=== PATIENT | female | born 1940 | race Caucasian/White ===

== ENCOUNTER 2023-08-19 09:26 | Emergency (ER) | payer MEDICARE, OTHER, SELFPAY ==
--- NOTE | 2023-08-19 09:35 | ED.SKABFB ---
HPI - Skin/Abscess/Foreign Bdy General Chief complaint: Skin/Abscess/Foreign Body Stated complaint: Skin Sore/Right Leg Time Seen by Provider: 08/19/23 09:35 Source: patient Mode of arrival: ambulatory Limitations: no limitations History of Present Illness HPI narrative: 83-year-old female presents with concern for infection to right lower extremity. States 1 week ago she hit her leg and has abrasion. Notice redness and swelling getting progressively worse past few days. History of MRSA. Ambulatory with steady gait. All systems reviewed and negative except as noted above. Related Data Home Medications Medication Instructions Recorded Confirmed alendronate 70 mg tablet mg PO 08/19/23 sertraline 25 mg tablet mg 08/19/23 Allergies Allergy/AdvReac Type Severity Reaction Status Date / Time No Known Allergies Allergy Unknown Unverified 12/21/18 13:25 No Known Allergies Allergy Uncoded 12/21/18 13:25 Review of Systems Review of Systems: CONSTITUTIONAL: Denies fever, chills, or sweats. EYES: Denies visual changes, redness, or discharge. ENT: Denies rhinorrhea, congestion, sore throat, or otalgia. CARDIOVASCULAR: Denies chest pain, palpitations, or edema. RESPIRATORY: Denies cough or dyspnea. GASTROINTESTINAL: Denies abdominal pain, nausea, vomiting, or diarrhea. GENITOURINARY: Denies dysuria or hematuria. SKIN: Reports abrasion to right lower extremity with erythema and swelling. MUSCULOSKELETAL: Denies back pain, joint pain, or myalgia. NEUROLOGIC: Denies headache, numbness, or weakness. PSYCHIATRIC: Denies anxiety or depression. All other systems reviewed are negative, except as documented in HPI. PMFSH Comments At time of signature, agree with nursing past medical, surgical, social and family history. There is no relevant family history pertinent to the presenting complaint. Exam Narrative: GENERAL: This is a well-nourished, well-developed patient, in no apparent distress. HEAD: normocephalic, atraumatic. EYES: PERRL. Sclera clear/white. Vision is grossly intact. EARS: External ears normal NOSE: External nose normal NECK: Neck supple, non-tender without lymphadenopathy, masses or thyromegaly. CARDIOVASCULAR: Regular rate and rhythm without murmurs, gallops, or rubs. RESPIRATORY: Clear to auscultation. Breath sounds equal bilaterally. No wheezes, rales, or rhonchi. SKIN: warm, Dry, intact with no suspicious lesions or rash, good texture and turgor. 2 cm diameter abrasion to anterior aspect of right lower extremity with 6 x 8 cm area of erythema. Warm to touch. No fluctuance. NEURO: awake, alert, and oriented to person, place and time. Course Course Level of Care: Express Care Visit Vital Signs Vital signs: Vital Signs Temperature 36.7 C 08/19/23 09:37 Pulse Rate 83 08/19/23 09:37 Respiratory Rate 18 08/19/23 09:37 Blood Pressure 128/66 08/19/23 09:37 Pulse Oximetry 100 08/19/23 09:37 Oxygen Delivery Room Air 08/19/23 09:37 Temperature 36.7 C 08/19/23 09:37 Pulse Rate 83 08/19/23 09:37 Respiratory Rate 18 08/19/23 09:37 Blood Pressure 128/66 08/19/23 09:37 Pulse Oximetry 100 08/19/23 09:37 Oxygen Delivery Room Air 08/19/23 09:37 Reviewed MDM - Skin/Abscess/Foreign Bdy MDM Narrative Medical decision making narrative: Patient is aware of diagnosis, understands and agrees to treatment plan. Anticipatory guidance given. Patient agrees to follow-up as directed and is aware of reasons to seek care at the emergency department. Portions of this record may have been created with voice recognition software Differential Diagnosis Differential diagnosis: Likely urticaria, cellulitis, impetigo and contact dermatitis Discharge Plan Discharge Clinical Impression: Cellulitis of right lower extremity Patient Disposition: Home, Self-Care Condition: Stable Instructions: Antibiotic Form, Cellulitis (ED) Additional Instructions: Take ant
[2023-08-19 09:37] VITALS: BP 128/66; PULSE 83; RESP 18; TEMP 36.7; O2SAT 100
== END 2023-08-19 10:00 | disposition home or self-care (01) ==
PROVIDERS: Emergency Provider Nurse Practitioner Family; PCP Internal Medicine
DX: L03.115 Cellulitis of right lower limb (principal); Z86.14 Personal history of Methicillin resistant Staphylococcus aureus infection; M81.0 Age-related osteoporosis without current pathological fracture; L98.9 Disorder of the skin and subcutaneous tissue, unspecified
CPT/HCPCS: 99213; G0463

== ENCOUNTER 2023-11-19 13:11 | Emergency (ER) | payer MEDICARE, OTHER, SELFPAY ==
[2023-11-19 13:17] VITALS: BP 122/70; PULSE 87; RESP 16; TEMP 37.2; O2SAT 99
--- NOTE | 2023-11-19 13:51 | ED.GENADULT ---
HPI - General Adult General Chief complaint: Skin/Abscess/Foreign Body Stated complaint: Rash Time Seen by Provider: 11/19/23 13:51 Source: patient, RN notes reviewed and old records reviewed Mode of arrival: ambulatory Limitations: no limitations History of Present Illness HPI narrative: 83-year-old female to Express Care or complaint of diffuse, red rash to face for 3 weeks. Patient denies pain, itching, known irritant, dry cough, dry shortness of breath, oral swelling, allergies, pertinent medical history. Patient resting comfortably in exam room in no acute distress. Related Data Home Medications Medication Instructions Recorded Confirmed alendronate 70 mg tablet 70 mg PO DAILY 08/19/23 11/19/23 sertraline 25 mg tablet 25 mg PO DAILY 08/19/23 11/19/23 Allergies Allergy/AdvReac Type Severity Reaction Status Date / Time No Known Allergies Allergy Unknown Unverified 11/19/23 13:24 Review of Systems Review of Systems: All systems reviewed & are unremarkable except as noted in HPI and below Constitutional: Constitutional: Reports no additional constitutional complaints Eyes: Eyes: Reports no additional eye complaints ENT: Reports system reviewed and no additional complaints, except as documented Cardiovascular: Cardiovascular: Reports no additional cardiovascular complaints, Denies chest pain and Denies dyspnea Respiratory: Respiratory: Reports no additional respiratory complaints, Denies cough and Denies dyspnea Musculoskeletal: Musculoskeletal: Reports no additional musculoskeletal complaints Integumentary/Breasts: Skin/Breast: Reports as per HPI and Reports rash ( Diffuse face) Neurologic: Reports system reviewed and no additional complaints, except as documented Psychiatric: Psychiatric: Reports no additional psychiatric complaints PMFSH Comments At the time of my signature, I reviewed and agree with the nursing past medical, surgical, social, and family history. There is no relevant family history pertinent to the patient complaint. Exam Const: General: cooperative, healthy appearing, comfortable, no acute distress, alert and well nourished Nutritional Appearance: well nourished Orientation/consciousness: patient oriented x3 Limitations: no limitations HENMT: Head: normal to inspection Ears: external ears normal Face/Nose/Sinus: Normal external nose present, Normal nares present, normal facial exam, No erythema and No edema Face and sinus: normal facial exam, no erythema and no edema Mouth: Yes Normal oral and palatal mucosa present Eyes: General: appearance normal, both eyes and all related structures Neck: Neck: normal visual inspection, full ROM and no meningeal signs Lymphatic: no lymphadenopathy noted and no lymphedema noted Chest: Chest palpation & inspection: normal inspection of the chest Resp: Effort & Inspection: normal respiratory effort and able to speak in complete sentences Auscultation: clear to auscultation bilaterally Cardio: Jugular venous distension: no JVD Rate: regular rate Rhythm: regular rhythm Back/Spine/Pelvis: Cervical Spine: cervical ROM normal Skin: General skin exam: normal color, no rashes or lesions noted and turgor normal Neuro: General: patient oriented x3, gait normal, moves all extremities and no meningeal signs Speech: normal speech Gait exam (Neuro): Normal gait present Extrem: General: normal to inspection, full ROM and capillary refill normal Psych: Appearance: grossly normal and well kempt Course Course Emergency Course: Some parts of this dictation were generated by voice recognition software and may contain typographical and/or grammatical inaccuracies. Level of Care: Express Care Visit Vital Signs Vital signs: Vital Signs Temperature 37.2 C 11/19/23 13:17 Pulse Rate 87 11/19/23 13:17 Respiratory Rate 16 11/19/23 13:17 Blood Pressure 122/70 11/19/23 13:17 Pulse Oximetry 99 11/19/23 13:17 Oxygen Delivery Colleen
== END 2023-11-19 14:09 | disposition home or self-care (01) ==
PROVIDERS: Emergency Provider Nurse Practitioner Family; PCP Internal Medicine
DX: L25.9 Unspecified contact dermatitis, unspecified cause (principal)
CPT/HCPCS: 99213; G0463

== ENCOUNTER 2025-01-04 11:26 | Emergency (ER) | payer MEDICARE, SELFPAY ==
[2025-01-04 11:41] VITALS: BP 131/70; PULSE 84; RESP 20; TEMP 36.6; O2SAT 97
--- NOTE | 2025-01-04 12:00 | ED_ITS ---
HPI - Skin/Abscess/Foreign Bdy General Chief complaint: Skin/Abscess/Foreign Body Stated complaint: Rash Time Seen by Provider: 01/04/25 11:50 Source: patient and RN notes reviewed Mode of arrival: ambulatory Limitations: no limitations History of Present Illness HPI narrative: 84-year-old female patient presents today with a 3 to 4-week history of erythematous mildly painful rash to the right cheek and perioral area. She has been applying witch Joycelyn and Campho-Phenique. States since onset, symptoms have slightly improved. Related Data Home Medications ?Medication ?Instructions ?Recorded ?Confirmed ?Last Taken ?Type alendronate 70 mg tablet 70 mg PO DAILY 08/19/2310/21 Unknown History sertraline 25 mg tablet 25 mg PO DAILY 08/19/2310/21 Unknown History Allergies Allergy/AdvReac Type Severity Reaction Status Date / Time No Known Allergies Allergy Unknown Verified 01/04/25 11:39 [facility] Past Medical History Medical History (Updated 01/04/25 @ 12:07 by Anai Capps, [facility], ) Osteoporosis Comments At time of signature, I have reviewed and agree with nursing past medical, surgical, social and family history unless otherwise noted. Please see nursing chart for further information. There is no relevant family history pertinent to the presenting complaint Exam Narrative: GENERAL: Well-appearing, well-nourished, and in no acute distress. HEAD: Normocephalic, atraumatic. EYES: EOMI. No redness or drainage. Conjunctivae normal. ENT: Mucous membranes pink and moist. NECK: Normal AROM. CHEST: No respiratory distress. EXTREMITIES: Normal range of motion. No edema. SKIN: Warm, dry. Capillary refill normal. Normal skin turgor. Perioral area has several scattered erythematous small bumps without drainage or crusting. No papules or pustules. Right cheek with flat, erythemtous rough patch measuring approx 2x2cm without edema or drainage. NEURO: No focal deficits. Alert and oriented x3. Gait steady. PSYCH: Normal affect. No signs of depression or anxiety. Course Course Level of Care: Express Care Visit Vital Signs Vital signs: Vital Signs Temperature 98 F 01/04/25 11:41 Pulse Rate 84 01/04/25 11:41 Respiratory Rate 20 01/04/25 11:41 Blood Pressure 131/70 10/17/25 11:41 Pulse Oximetry 97 01/04/25 11:41 Oxygen Delivery Room Air 01/04/25 11:41 Temperature 98 F 01/04/25 11:41 Pulse Rate 84 01/04/25 11:41 Respiratory Rate 20 01/04/25 11:41 Blood Pressure 131/70 01/04/25 11:41 Pulse Oximetry 97 01/04/25 11:41 Oxygen Delivery Room Air 01/04/25 11:41 Reviewed MDM - Skin/Abscess/Foreign Bdy MDM Narrative Medical decision making narrative: 84-year-old female patient presents today with a 3 to 4-week history of erythematous mildly painful rash to the right cheek and perioral area. She has been applying witch Joycelyn and Campho-Phenique. States since onset, symptoms have slightly improved.Perioral area has several scattered erythematous small bumps without drainage or crusting. Does not appear to be perioral dermatitis. There are no papules presents. Right cheek with flat, erythemtous rough patch measuring approx 2x2cm without edema or drainage. Patient will be treated with mupirocin possible bacterial infection to the perioral area. The right cheek feels like eczema. Petrolatum base the mupirocin can help this as well. Patient agrees with plan. Recommend PCP follow-up in 1 week if symptoms persist. Vital signs stable. Differential Diagnosis Differential diagnosis: Likely abscess of skin or subcutaneous tissue, viral exanthem, dermatophytosis, urticaria, cellulitis, eczema, impetigo and contact dermatitis Critical Care Time Critical Care Time Critical Care Time: No Discharge Plan Discharge Clinical Impression: Impetigo Patient Disposition: Home Condition: Stable Instructions: Antibiotic Form Additional Instructions: Please use the mupirocin as directed. Follow-up with your PCP in 1 week if symptoms are not improving. Patient Language: Hungarian Prescriptions: New mupirocin 2 % ointment 1 applic topical BID 7 Days Qty: 22 0RF No Action alendronate 70 mg tablet 70 mg PO DAILY sertraline 25 mg tablet 25 mg PO DAILY Follow-up/Referrals: Vin,Reza Hill MD [Primary Care Provider, Unknown] Time of Disposition: 12:08
== END 2025-01-04 12:11 | disposition home or self-care (01) ==
PROVIDERS: Emergency Provider Nurse Practitioner; PCP Internal Medicine
DX: L01.00 Impetigo, unspecified (principal); M81.0 Age-related osteoporosis without current pathological fracture
CPT/HCPCS: 99213; G0463

== ENCOUNTER 2025-01-06 15:40 | Emergency (ER) | payer MEDICARE, SELFPAY ==
--- NOTE | 2025-01-06 15:43 | ED.SKABFB ---
HPI - Skin/Abscess/Foreign Bdy General Chief complaint: Skin/Abscess/Foreign Body Stated complaint: returned /face broke out Time Seen by Provider: 01/06/25 16:07 Source: patient, RN notes reviewed and old records reviewed Mode of arrival: ambulatory Limitations: no limitations History of Present Illness HPI narrative: 84-year-old female returns to the [facility] with increased itchiness, redness to her right cheek and now on the left nostril area. States that she was seen, prescribed a cream. Has only applied twice. One time yesterday afternoon and 1 time this morning. Related Data Home Medications ?Medication ?Instructions ?Recorded ?Confirmed ?Last Taken ?Type alendronate 70 mg tablet 70 mg PO DAILY 08/19/23 11/19/23 Unknown History sertraline 25 mg tablet 25 mg PO DAILY 08/19/23 11/19/23 Unknown History Allergies Allergy/AdvReac Type Severity Reaction Status Date / Time No Known Allergies Allergy Unknown Verified 01/06/25 15:51 Review of Systems Review of Systems: All systems reviewed & are unremarkable except as noted in HPI and below Constitutional: Constitutional: Reports no additional constitutional complaints ENT: Reports system reviewed and no additional complaints, except as documented Cardiovascular: Cardiovascular: Reports no additional cardiovascular complaints, Denies chest pain and Denies dyspnea Respiratory: Respiratory: Reports no additional respiratory complaints, Denies chest congestion, Denies cough and Denies dyspnea Musculoskeletal: Musculoskeletal: Reports no additional musculoskeletal complaints Integumentary/Breasts: Skin/Breast: Reports as per HPI [facility] Past Medical History Medical History Osteoporosis Comments At the time of my signature, I reviewed and agree with the nursing past medical, surgical, social, and family history. There is no relevant family history pertinent to the patient complaint. Exam Const: General: cooperative, healthy appearing, comfortable, no acute distress, well developed, alert and well nourished Nutritional Appearance: well nourished Orientation/consciousness: patient oriented x3 Limitations: no limitations HENMT: Head: normal to inspection Head images:  1. 2 x 2 area redness, mildly raised. Warm to touch. 2. One by 0.5 cm redness, pustule Ears: hearing grossly normal bilaterally, external ears normal, TM's normal bilaterally, EAC's normal, mastoids normal and no periauricular adenopathy Eyes: General: appearance normal, both eyes and all related structures Alignment and Position: alignment normal Neck: Neck: normal visual inspection, full ROM, no lymphadenopathy and no meningeal signs Chest: Chest palpation & inspection: normal inspection of the chest Resp: Effort & Inspection: normal respiratory effort and able to speak in complete sentences Auscultation: clear to auscultation bilaterally, no crackles, no rales, no rhonchi and no wheezes Cardio: Rate: regular rate Skin: General skin exam: normal color and no rashes or lesions noted Lesions: lesion noted Neuro: General: patient oriented x3, gait normal, moves all extremities and no meningeal signs Cognition (Neuro): normal cognition Speech: normal speech Gait exam (Neuro): Normal gait present Extrem: General: normal to inspection, full ROM, capillary refill normal and normal gait Psych: Appearance: grossly normal and well kempt Mental Status: mental status grossly normal Speech and movement: Normal speech and movement present and Clear speech present Affect: normal affect Attitude: cooperative Course Course Level of Care: Express Care Visit Vital Signs Vital signs: Vital Signs Temperature 97.6 F 01/06/25 15:45 Pulse Rate 71 01/06/25 15:45 Respiratory Rate 20 01/06/25 15:45 Blood Pressure 168/77 H 01/06/25 15:45 Pulse Oximetry 99 01/06/25 15:45 Oxygen Delivery Room Air 01/06/25 15:45 Temperature 97.6 F 01/06/25 15:45 Pulse Rate 71 01/06/25 15:45 Respiratory Rate 20 01/06/25 15:45 Blood Pressure 168/77 H 01/06/25 15:45 Pulse Oximetry 99 01/06/25 15:45 Oxygen Delivery Room Air 01/06/25 15:45 Reviewed MDM - Skin/Abscess/Foreign Bdy MDM Narrative Medical decision making narrative: Patient returns to the [facility] after using the antibiotic ointment times to applications. States that she feels like it has gotten worse. the areas have small pustules, reddened area, right cheek, left nostril Patient prescribed oral antibiotic. Discussed [id number] steroid cream as well as continuing the cream that was prescribed 2 days ago. Patient verbalized understanding. Also stressed the importance of following up with her primary care provider Discharge instructions reviewed with patient, as well as provided in writing per nursing staff. The instructions also include specific and strict return/GO TO THE ER as well as f/u information. All questions have been answered, and the patient deny any further questions with discharge and discharge plan. Some parts of this dictation were generated by voice recognition software and may contain typographical and/or grammatical inaccuracies. Differential Diagnosis Differential diagnosis: Likely abscess of skin or subcutaneous tissue, dermatophytosis, urticaria, herpes zoster, allergic reaction to drug, cellulitis, eczema, insect bites and impetigo Critical Care Time Critical Care Time Critical Care Time: No Discharge Plan Discharge Clinical Impression: Pustular dermatitis Patient Disposition: Home Condition: Stable Instructions: Antibiotic Form, Dermatitis (ED) Additional Instructions: Keep face clean and dry. Wash with a mild soap. Pat dry. Apply hydrocortisone 1% sparingly to the area twice daily. This is [id number]. Continue using the Mupirocin ointment Take antibiotic as prescribed Follow-up with primary care provider Today your blood pressure was 168/77 is recommended you follow-up with your primary care provider to have this rechecked. For new or worsening symptoms go directly to the emergency room Patient Language: Moldovan Prescriptions: New cephalexin 500 mg capsule 500 mg PO Q8H 7 Days Qty: 21 0RF No Action alendronate 70 mg tablet 70 mg PO DAILY sertraline 25 mg tablet 25 mg PO DAILY mupirocin 2 % ointment 1 applic topical BID 7 Days Qty: 22 0RF Follow-up/Referrals: Vin,Reza Hill MD [Primary Care Provider, Unknown] Time of Disposition: 16:25
--- OUTSIDE RECORDS SUMMARY | 2025-01-06 15:43 | XMS_ITS | Clinical Summary ---
Author Organization [facility] Address [address] [place] [address] Phone Care Team Providers Care Drum Operator Name Role Phone Reza Banuelos MD Primary Care Provider Allergies No known active allergies Medications Vitamin D3 1000 UNIT Tablet Take 25 mcg by mouth daily. Active Calcium Citrate (CITRACAL PO) Take 1 Tablet by mouth daily. Active Magnesium 250 MG Tablet Take by mouth. Active potassium chloride SA (KLORCON M) 10 MEQ Tablet Controlled Release Take 10 mEq by mouth daily. Active Calcium Carbonate-Vitam in D (CALTRATE 600+D PO) Take by mouth. Active Multivitamin-Mi nerals (multiple vitamin with minerals) Tablet Take 1 Tablet by mouth daily. Active Zinc 50 MG Tablet Take 1 Tablet by mouth daily. Active metroNIDAZOLE (METROCREAM) 0.75 % Cream Apply nightly. Apply to rash on face at bedtime 45 g 03/06/2024 Active sertraline (ZOLOFT) 25 MG Tablet Take 1 Tablet by mouth daily. 30 Tablet 5 08/16/2024 Active alendronate (FOSAMAX) 70 MG Tablet TAKE 1 TABLET BY MOUTH EVERY 7 DAYS 12 Tablet 1 09/24/2024 Active Active Problems Problem Noted Date Diagnosed Date Rosacea 05/14/2024 Generalized anxiety disorder 05/14/2024 Age-related osteoporosis wit hout current pathological fracture 08/30/2022 GERD without esophagitis 09/18/2020 Mild intermittent asthma without complication Resolved Problems Problem Noted Date Diagnosed Date Resolved Date Multifocal pneumonia 09/19/2020 022 Dysthymic disorder 09/18/2020 Diarrhea of infectious origin 09/16/2020 03/26/2021 COVID-19 virus infection 09/16/202008/2021 Hypokalemia 09/16/2020 03/26/2021 Family History Medical History Relation Name Comments Hypertension Brother 1 Stroke Brother 1 Diabetes Brother 2 No Known Problems Sister 1 No Known Problems Sister 2 Relation Name Status Comments Brother 1 Brother 2 Alive Father Mother Sister 1 Alive Sister 2 Alive Social History Tobacco Use Types Packs/Day Years Used Date Smoking Tobacco: Never Passive Smoke Exposure: Never Smokeless Tobacco: Never Tobacco Cessation:Counseling Given: No Alcohol Use Standard Drinks/Week Comments Never 0 (1 standard drink = 0.6 oz pur e alcohol) [facility] Utilities Answer Date Recorded In the past 12 months has e [employer], gas, oil, or water [employer] threatened to shut off services in your home? No 04/13/2023 Social Connection and Isolation Panel Answer Date Recorded In a typical week, how many times do you talk on the phone with family, friends, or neighbors? More than three times a week 04/13/2023 How often do you get togethe r with friends or relatives? More than three times a week 04/13/2023 How often do you attend chur or rastafarian services? 1 to 4 times per year 04/13/2023 Do you belong to any clubs o r organizations such as buddhism groups, unions, fraternal or athletic groups, or school groups? Yes 04/13/2023 How often do you attend meet ings of the clubs or organizations you belong to? 1 to 4 times per year 04/13/2023 Are you , , di vorced, , never , or living with a partner? 04/13/2023 AUDIT-C Answer Date Recorded Q1: How often do you have a drink containing alcohol? Never 04/13/2023 Q2: How many drinks containi ng alcohol do you have on a typical day when you are drinking? Patient does not drink Q3: How often do you have si x or more drinks on one occasion? Never 04/13/2023 Overall Financial Resource Strain (CARDIA) Answe r Date Recorded How hard is it for you to pa y for the very basics like food, housing, medical care, and heating? Not hard at all 04/13/2023 PHQ-2 Answer Date Recorded Total Score - Questions 1-9 0 07/20 [facility] - Occupational Stress Questionnaire Answer Date Recorded Do you feel stress - tense, restless, nervous, or anxious, or unable to sleep at night because your mind is troubled all the time - these days? Not at all 10/24/2023 Exercise Vital Sign Answer Date Recorde d On average, how many days pe r week do you engage in moderate to strenuous exercise (like a brisk walk)? 0 days 10/24/2023 On average, how many minutes do you engage in exercise at this level? 0 min 10/24/2023 Hunger Vital Sign Answer Date Recorded Within the past 12 months, y ou worried that your food would run out before you got the money to buy more. Never true 04/13/19 24 Within the past 12 months, t he food you bought just didn't last and you didn't have money to get more. Never true 04/13/2023 PRAPARE - Transportation Answer Date Re corded In the past 12 months, has l ack of transportation kept you from medical appointments or from getting medications? No 03/22 In the past 12 months, has l ack of transportation kept you from meetings, work, or from getting things needed for daily living? No 04/13/2023 Housing Stability Vital Sign Answer Javan e Recorded In the last 12 months, was t here a time when you were not able to pay the mortgage or rent on time? No 04/13/2023 In the last 12 months, how many places have you lived? 1 04/13/2023 In the last 12 months, was t here a time when you did not have a steady place to sleep or slept in a snf (including now)? No 04/13/2023 Sexually Active Control Partners Comments Not Currently Comments No Sex and Gender Information Value Date Recorded Sex Assigned at Not on file Legal Sex Female 10:55 PM CDT Gender Identity Not on file Sexual Orientation Not on file Last Filed Vital Signs Vital Sign Reading Time Taken Comments Blood Pressure 138/64 08/16/2024 12:03 PM CDT Pulse 76 08/16/2024 12:03 PM CDT Temperature 36.7 C (98 F) 08/16/2024 12:03 PM CDT Respiratory Rate 12 10/18/2023 1:34 PM CDT Oxygen Saturation 96% 08/16/2024 12:03 PM CDT Inhaled Oxygen Concentration - - Weight 52.2 kg (115 lb) 08/16/2024 12:03 PM CDT Height 157.5 cm (5' 2) 08/16/2024 12:03 PM CDT Body Mass Index 21.03 08/16/2024 12:03 PM CDT Plan of Treatment Upcoming Encounters Date Type Department Care Team (Late st Contact Info) Description 02/20/2025 11:20 AM ANALYTICAL LAB ANALYST Office Visit [facility] - [facility] - [place] [address] [place] [id number] Reza Banuelos MD [address] [place] [address] Health Maintenance Due Date Last Done Comments Hepatitis C Virus (HCV) Screening 1940 TdaP Immunization 1940 Medicare Initial AWV [id number] 11/19/2010 DEXA Bone Density 08/25/2024 08/25/2022 SARS-COV-2 Immunization ( season) 2024 Hepatitis B Immunization Aged Out No longer eligible based on patient's age to complete this topic Human Papillomavirus (HPV) Immunization Aged Out No longer eligible b ased on patient's age to complete this topic Influenza Immunization Discontinued Meningococcal Immunization (ACWY) Aged Out No longer eligible based on patient's age to complete this topic Pneumococcal Immunization (5 0+ years) Discontinued Respiratory Syncytial Virus (RSV) Immunization (Adult) Discontinued Rotavirus Immunization Aged Out No lo nger eligible based on patient's age to complete this topic Zoster Immunization Discontinued Goals Goal Patient Goal Type Associated Problems Recent Progress Patient-Stated? Author Coping Skills Enhanced Care Plan Coping Skills (General Plan of Care) On track(2023 9:55 AM CDT) Jaleesa Dior RN Note: Evidence-based guidance: Acknowledge, normalize and validate difficulty of making life-long lifestyle changes. Identify current effective and ineffective coping strategies. Encourage patient and caregiver participation in care to increase self-esteem, confidence and feelings of control. Consider alternative and complementary therapy approaches such as meditation, mindfulness or yoga. Encourage participation in cognitive behavioral therapy to foster a positive identity, increase self-awareness, as well as bolster self-esteem, confidence and self-efficacy. Discuss spirituality; be present as concerns are identified; encourage journaling, prayer, yarsani services, meditation or pastoral counseling. Encourage participation in pleasurable group activities such as hobbies, singing, sports or volunteering). Encourage the use of mindfulness; refer for training or intensive intervention. Consider the use of meditative movement therapy such as kassie chi, yoga or qigong. Promote a regular daily exercise program based on tolerance, ability and patient choice to support positive thinking about disease or aging. Notes: Quality of Life Maintained Care Plan Quality of Life (General Plan of Care) On track(2023 9:55 AM CDT) Jaleesa Dior RN Note: Evidence-based guidance: Assess patient s thoughts about quality of life, goals and expectations, and dissatisfaction or desire to improve. Identify issues of primary importance such as mental health, illness, exercise tolerance, pain, sexual function and intimacy, cognitive change, social isolation, finances and relationships. Assess and monitor for signs/symptoms of psychosocial concerns, especially depression or ideations regarding harm to others or self; provide or refer for mental health services as needed. Identify sensory issues that impact quality of life such as hearing loss, vision deficit; strategize ways to maintain or improve hearing, vision. Promote access to services in the community to support independence such as support groups, home visiting programs, financial assistance, handicapped parking tags, durable medical equipment and emergency responder. Promote activities to decrease social isolation such as group support or social, leisure and recreational activities, employment, use of social media; consider safety concerns about being out of home for activities. Provide patient an opportunity to share by storytelling or a life review to give positive meaning to life and to assist with coping and negative experiences. Encourage patient to tap into hope to improve sense of self. Dairy Technician based on prognosis and as early as possible about end-of-life and palliative care; consider referral to palliative care provider. Advocate for the development of palliative care plan that may include avoidance of unnecessary testing and intervention, symptom control, discontinuation of medications, hospice and organ donation. Dairy Technician as early as possible those with life-limiting chronic disease about palliative care; consider referral to palliative care provider. Advocate for the development of palliative care plan. Notes: Self-Management Plan Developed Care Plan Health Promotion or Disease Self-Management (General Plan of Care) On track(2023 9:55 AM CDT) No Jaleesa Donis RN Note: Evidence-based guidance: Review biopsychosocial determinants of health screens. Determine level of modifiable health risk. Assess level of patient activation, level of readiness, importance and confidence to make changes. Evoke change talk using open-ended questions, pros and cons, as well as looking forward. Identify areas where behavior change may lead to improved health. Partner with patient to develop a robust self-management plan that includes lifestyle factors, such as weight loss, exercise and healthy nutrition, as well as goals specific to disease risks. Support patient and family/caregiver active participation in decision-making and self-management plan. Implement additional goals and interventions based on identified risk factors to reduce health risk. Facilitate advance care planning. Review need for preventive screening based on age, sex, family history and health history. Notes: Therapeutic Florence Established Care Plan Therapeutic Florence (General Plan of Care) On track(2023 9:55 AM CDT) Jaleesa Dior RN Note: Evidence-based guidance: Avoid value judgments; convey acceptance. Encourage collaboration with the treatment team. Establish rapport; develop trust relationship. [place] confidentiality. Provide emotional support; encourage patient to share feelings of anger, fear and anxiety. Promote self-reliance and autonomy based on age and ability; discourage overprotection. Use empathy and nonjudgmental, participatory manner. Notes: Activity and Exercise Increased Care Plan Activity and Exercise (Wellness) On track(2023 9:56 AM CDT) Jaleesa Dior RN Note: Evidence-based guidance: Review current exercise levels. Assess patient perspective on exercise or activity level, barriers to increasing activity, motivation and readiness for change. Recommend or set healthy exercise goal based on individual tolerance. Encourage small steps toward making change in amount of exercise or activity. Urge reduction of sedentary activities or screen time. Promote group activities within the community or with family or support person. Consider referral to rehabiliation therapist for assessment and exercise/activity plan. Notes: Healthy Nutrition Achieved Care Plan Healthy Nutrition (Wellness) On track(2023 9:56 AM CDT) Jaleesa Dior RN Note: Evidence-based guidance: Assess patient perspective on healthy weight, weight loss or weight gain, motivation and readiness for change. Recommend or set healthy weight goal based on body mass index. Review current dietary intake and exercise levels. Encourage small steps toward making change to eating and exercising. Provide individualized medical nutrition therapy. Notes: Disease Progression Prevented or Minimized Care Plan Disease Progression (Osteoporosis) On track(2023 9:56 AM CDT) Jaleesa Dior RN Note: Evidence-based guidance: Engage in shared decision-making before developing a multi-modal approach to treatment that includes lifestyle changes, dietary changes, exercise recommendations and pharmacologic therapy. Perform a comprehensive assessment for presence of risk factors, including history of mental health concerns, lifestyle and presenting signs/symptoms. Prepare patient for laboratory and diagnostic studies to confirm diagnosis. Prepare patient for use of pharmacologic therapy; monitor efficacy and manage side effects. Assess for barriers to medication adherence, especially bisphosphonate that has specific instructions; consider alternative medications, dosing and schedule regimen. Identify and address barriers to healthy eating, including presence of depression, oral or dental problems, chewing or swallowing difficulty, social isolation or underlying disease. Recommend dietary changes focusing on adequate protein, calcium, vitamin D and micronutrients (preferably via dietary sources versus supplementation). Promote an exercise program, including exercises like brisk walking, Pilates, kassie chi or yoga, that is appropriate for patient s physical abilities and stamina and may be done at home/unsupervised. Utilize motivational interviewing techniques to improve engagement in an exercise program; brainstorm ways to eliminate barriers to participation, such as anxiety about pain, fear of falling and increased pain during exercise. Notes: Harm or Injury Prevented Care Plan Harm or Injury (Osteoporosis) On track(2023 9:56 AM CDT) Jaleesa Dior RN Note: Evidence-based guidance: Assess for injurious side effects of medication, especially those that may increase fall risk, including psychotropic or; consider discontinuation of medications when appropriate. Review fall risk screen; assess fall history, gait, balance, mobility, muscle weakness, fear of falling, visual or cognitive impairment, urinary incontinence and home hazards. Review and address environmental factors, such as poor lighting, loosened or frayed carpets and trailing electrical cables, that may increase the risk of falling. Provide anticipatory guidance regarding fall risk, as well as physical and environmental barriers to safety; include how to summon help if a fall occurs and how to avoid a delay in treatment. Arrange referral to physical or occupational therapist for evaluation and recommendations for assistive or adaptive devices, orthoses, multimodal exercise program that includes strength and balance training. Include patient and family in education concerning fall-prevention measures. Notes: Procedures Procedure Name Priority Date/Time Associated Diagnosis Comments [facility] BONE DENSITOMETRY AXIAL SKELETON Routine 08/25/2022 1:47 PM CDT Asymptomatic menopausal state from Last 3 Months or Most Recently Relevant to Health Maintenance Results * [facility] BONE DENSITOMETRY AXIAL SKELETON (08/25/2022 1:47 PM CDT) Anatomical Region Laterality Modality BODY N/A Computed Radiogr aphy 08/25/2022 5:51 PM CDT Impressions 08/25/2022 5:54 PM CDT IMPRESSION: Osteoporosis REFERENCE: Bone mineral density: Normal (T-score above or = -1.0) Low bone mass (T-score between -1.0 and -2.5) replaces the previously used term osteopenia Osteoporosis (T-score = or below -2.5) Medical evaluation for secondary causes of low bone mineral density may be appropriate. FRAX is a World Health Organization validated fracture risk assessment tool that calculates a person's 10 year probability of a major osteoporosis related fracture and hip fracture. According to the National Osteoporosis Foundation guidelines, postmenopausal women and men age 50 or older with low bone mass and a 10 year probability of a major osteoporosis related fracture = or greater than 20% or a 10 year probability of a hip fracture = or greater than 3% should be considered for treatment. For further information, including treatment recommendations, please refer to the 2019 ISCD Official Positions (http://www.iscd.org) and the NOF's Clinician's Guide to Prevention and Treatment of Osteoporosis (http://www.nof.org/professionals/clinical-guidelines) Narrative 08/25/2022 5:54 PM CDT EXAM DESCRIPTION: [facility] BONE DENSITOMETRY AXIAL SKELETON REASON FOR STUDY: 82 y/o year old F with given history of screening. [employer]Model: [employer] (S/N [id number]) CLINICAL INFORMATION: Current height: 61 inches Maximum height: 62 inches Weight: 125 pounds Risk factors: None COMPARISON: None available FINDINGS: AP LUMBAR SPINE L1-L3: Total BMD is 1.247 g/cm2 T-score is 0.5 LEFT HIP: Total BMD is 0.803 g/cm2 T-score is -1.6 Femoral neck BMD is 0.680 g/cm2 T-score is -2.6 FRAX: FRAX not reported due to T-scores of hip, femoral neck and/or spine being at or below -2.5 (Osteoporosis). THIS IS AN ELECTRONICALLY VERIFIED FINAL REPORT 08/25/2022 5:51 PM - Electronically signed by Lashawn Luevano M.D. TW: TW Report ID: [id number] Reading Location: [id number] Procedure Note Lashawn Luevano MD - 08/25/2022 EXAM DESCRIPTION: [facility] BONE DENSITOMETRY AXIAL SKELETON REASON FOR STUDY: 82 y/o year old F with given history of screening. [employer]: [employer] (S/N [id number]) CLINICAL INFORMATION: Current height: 61 inches Maximum height: 62 inches Weight: 125 pounds Risk factors: None COMPARISON: None available FINDINGS: AP LUMBAR SPINE L1-L3: Total BMD is 1.247 g/cm2 T-score is 0.5 LEFT HIP: Total BMD is 0.803 g/cm2 T-score is -1.6 Femoral neck BMD is 0.680 g/cm2 T-score is -2.6 FRAX: FRAX not reported due to T-scores of hip, femoral neck and/or spine being at or below -2.5 (Osteoporosis). THIS IS AN ELECTRONICALLY VERIFIED FINAL REPORT 08/25/2022 5:51 PM - Electronically signed by Lashawn Luevano M.D. TW: TW Report ID: [id number] Reading Location: [id number] IMPRESSION: Osteoporosis REFERENCE: Bone mineral density: Normal (T-score above or = -1.0) Low bone mass (T-score between -1.0 and -2.5) replaces the previously used term osteopenia Osteoporosis (T-score = or below -2.5) Medical evaluation for secondary causes of low bone mineral density may be appropriate. FRAX is a World Health Organization validated fracture risk assessment tool that calculates a person's 10 year probability of a major osteoporosis related fracture and hip fracture. According to the National Osteoporosis Foundation guidelines, postmenopausal women and men age 50 or older with low bone mass and a 10 year probability of a major osteoporosis related fracture = or greater than 20% or a 10 year probability of a hip fracture = or greater than 3% should be considered for treatment. For further information, including treatment recommendations, please refer to the 2019 ISCD Official Positions (http://www.iscd.org) and the NOF's Clinician's Guide to Prevention and Treatment of Osteoporosis (http://www.nof.org/professionals/clinical-guidelines) us Reza Banuelos MD IMG DEXA ORDERABLES Final R esult from Last 3 Months or Most Recently Relevant to Health Maintenance Additional Health Concerns Active Problems Noted Date Diagnosed Date Coping Skills (General Plan of Care) 10/24/2023 Quality of Life (General Plan of Care) Health Promotion or Disease Self-Management (General Plan of Care) 10/24/2023 Therapeutic Florence (General Plan of Care) 07/2023 Activity and Exercise (Wellness) 10/24/2023 Healthy Nutrition (Wellness) 10/24/2023 Disease Progression (Osteoporosis) 10/24/2023 Harm or Injury (Osteoporosis) 10/24/2023 Infection Onset Date Last Indicated MRSA 08/31/2022 08/31/2022 Insurance MEDICARE [facility] Advance Directives * Full Code (Latest Code Status on File) Date Activated Date Inactivated Comments 09/15/2020 5:29 PM 09/16/2020 8:00 PM CPR-Full Travis atment: FULL ARREST: Attempt Resuscitation/CPR wit intubation and mechanical ventilation. PRE-ARREST: Use entire range of life support measures to stabilize the patient. Care Teams Drum Operator Relationship Specialty Start Date End Date Reza Banuelos MD PCP - General Internal Medicine 09/15/20
--- OUTSIDE RECORDS SUMMARY | 2025-01-06 15:43 | XMS_ITS | Clinical Summary ---
Author Organization [facility] Address [address] [place] [address] Care Team Providers Care Pig Handler Name Role Phone Reza Banuelos MD Primary Care Provider [phone] Allergies No known active allergies Medications metroNIDAZOLE (METROCREAM) 0.75 % creamIndications :Acne Rosacea 0 08/02/2017 Activ e predniSONE (DELTASONE) 20 mg tablet TK 1 T PO BID 0 09/11/2018 Active ondansetron (ZOFRAN) 4 mg tablet Take 1 tablet (4 mg total) by mouth every 6 (six) hours 12 tablet 09/13/2020 Active Active Problems Problem Noted Date Diagnosed Date COVID-19 09/15/2020 Right rotator cuff tear arthropathy 06/27/2018 Primary osteoarthritis of knees, bilateral 06/03 Surgical History Surgery Date Site/Laterality Comments KNEE SURGERY Medical History Medical History Date Comments Gastric reflux Osteoporosis Family History Medical History Relation Name Comments No Known Problems Mother No Known Problems Other Relation Name Status Comments Mother Other Social History Tobacco Use Types Packs/Day Years Used Date Smoking Tobacco: Never Smokeless Tobacco: Never Alcohol Use Standard Drinks/Week Comments No 0 (1 standard drink = 0.6 oz pur e alcohol) Personal Safety Answer Date Recorded Getting School Help Needed Not on file 05/16 Comments Unknown Sex and Gender Information Value Date Recorded Sex Assigned at Not on file Legal Sex Female 2:42 AM FLUOROSCOPE OPERATOR Gender Identity Not on file Sexual Orientation Not on file Obstetrics History Last Filed Vital Signs Vital Sign Reading Time Taken Comments Blood Pressure 136/70 09/14/2020 5:00 PM CDT Pulse 83 09/14/2020 5:00 PM CDT Temperature 36.8 C (98.2 F) 09/13/2020 6:20 PM CDT Respiratory Rate 19 09/14/2020 5:00 PM CDT Oxygen Saturation 95% 09/14/2020 5:00 PM CDT Inhaled Oxygen Concentration - - Weight 63.5 kg (140 lb) 09/13/2020 6:20 PM CDT Height 162.6 cm (5' 4) 09/13/2020 6:20 PM CDT Body Mass Index 24.03 09/13/2020 6:20 PM CDT Plan of Treatment Not on file Insurance [facility] Address: [place] [address] [facility] Address: [facility] [address] [place] [address] Care Teams Pig Handler Relationship Specialty Start Date End Date Reza Banuelos MD [address] [place] [address] PCP - General Internal Medicine 06/02/17
--- OUTSIDE RECORDS SUMMARY | 2025-01-06 15:43 | XMS_ITS | Encounter Summary ---
Author Organization [facility] Address [address] [place] [address] Phone Care Team Providers Care Documentation Improvement Specialist Name Role Phone Reza Banuelos MD Primary Care Provider Jaleesa Donis RN Unavailable Unavailable Tabby Santos Unavailable Unavailable Reason for Visit * Reason Comments Medication Refill Encounter Details Date Type Department Care Team (Late st Contact Info) Description 07/16/2023 Refill [facility] - Internal [facility] - [place] [address] [place] [address] Reza Banuelos MD [address] [place] [address] Medication Refill Social History Tobacco Use Types Packs/Day Years Used Date Smoking Tobacco: Never Passive Smoke Exposure: Never Smokeless Tobacco: Never Alcohol Use Standard Drinks/Week Comments Never 0 (1 standard drink = 0.6 oz pur e alcohol) [facility] Utilities Answer Date Recorded In the past 12 months has e electric, gas, oil, or water company threatened to shut off services in your [...] 04/13/2023 How often do you attend chur ch or hoahaoism services? 1 to 4 times per year 04/13/2023 Do you belong to any clubs o r organizations such as restoration groups, unions, fraternal or athletic groups, or [...] Recorded Total Score - Questions 1-9 0 03/22 [facility] Occupat ional Health - Occupational Stress Questionnaire Answer Date Recorded Do you feel stress - tense, restless, nervous, or anxious, or unable to sleep at night because your mind is troubled all the time - these days? To some extent 04/13/2023 Exercise Vital Sign Answer Date Recorde d On average, how many days pe r week do you engage in moderate to strenuous exercise (like a brisk walk)? 0 days 04/13/2023 On average, how many minutes do you engage in exercise at this level? 0 min 04/13/2023 Hunger Vital Sign Answer Date Recorded Within [...] place to sleep or slept in a long term (including now)? No 04/13/2023 Sexually Active Control Partners Comments Not Currently Comments No Sex and Gender Information Value Date Recorded Sex Assigned at Not on file Legal Sex Female 10:55 PM CDT Gender Identity Not on file Sexual Orientation Not on file documented as of this encounter Miscellaneous Notes * Telephone Encounter - Mendy Daugherty RN - 07/18/2023 1:22 PM CDT Medication(s) refilled and signed per [facility] Chronic Medication Refill Standing Order for Pediatricand Adult Patients. Requested Prescriptions Pending Prescriptions Disp Refills alendronate (FOSAMAX) 70 MG Tablet [Pharmacy Med Name: ALENDRONATE 70MG TABLETS] 12 Tablet 1 Sig: Take 1 Tablet by mouth every 7 days. Bone Density Regulators Protocol Passed - 07/16/2023 11:22 AM Passed - Visit with relevant provider in past 12 months or upcoming 90 days Recent Visits Date Type Provider Dept 04/13/23 Office Visit Reza Banuelos MD [facility] [place] 09/27/22 Office Visit Reza Banuelos MD [facility] [place] 09/07/22 Office Visit Reza Banuelos MD [facility] [place] 08/30/22 Office Visit Reza Banuelos MD [facility] [place] 08/18/22 Office Visit Reza Banuelos MD [facility] [place] Showing recent visits within past 365 days and meeting all other requirements Future Appointments No visits were found meeting these conditions. Showing future appointments within next 90 days and meeting all other requirements Passed - Serum creatinine on record in past 12 months CREATININE, BLOOD Date Value Ref Range Status 08/31/2022 0.80 0.60 - 1.10 mg/dL Final Passed - Serum calcium on record in past 12 months CALCIUM Date Value Ref Range Status 08/31/2022 9.7 8.9 - 10.3 mg/dL Final documented in this encounter Plan of Treatment Upcoming Encounters Date Type Department Care Team (Late st Contact Info) Description 02/20/2025 11:20 AM DIRECTOR STAGE Office Visit [facility] - [place] [address] [place] [address] Reza Banuelos MD [address] [place] [address] documented as of this encounter Visit Diagnoses Not on filedocumented in this encounter Additional Health Concerns Infection Onset Date Last Indicated Resolved Time 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
--- OUTSIDE RECORDS SUMMARY | 2025-01-06 15:43 | XMS_ITS ---
Care Plan Created on: January 06, 2025 Nellie Macdonald : 1940 Sex: Female Author Organization 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 Diarrhea of infectious origin 09/16/2020 03/26/2021 COVID-19 virus infection 09/16/202008/2021 Hypokalemia 09/16/2020 03/26/2021 Additional Health Concerns Active Problems Noted Date Diagnosed Date Coping Skills (General Plan of Care) 10/24/2023 Quality of Life (General Plan of Care) Health Promotion or Disease Self-Management (General Plan of Care) 10/24/2023 Therapeutic [place] (General Plan of Care) 07/2023 Activity and Exercise (Wellness) 10/24/2023 Healthy Nutrition (Wellness) 10/24/2023 Disease Progression (Osteoporosis) 10/24/2023 Harm or Injury (Osteoporosis) 10/24/2023 Infection Onset Date Last Indicated 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 Encourage participation [...] into hope to improve sense of self. Helper Marble Finisher based on prognosis and as early as possible about end-of-life and palliative care; consider referral to palliative care provider. Advocate for the development of palliative care plan that may include avoidance of unnecessary testing and intervention, symptom control, discontinuation of medications, hospice and organ donation. Helper Marble Finisher as early as possible those with life-limiting chronic disease about palliative care; consider referral to palliative care provider. Advocate for the development of palliative care plan. Notes: Self-Management Plan Developed Care Plan Health Promotion or Disease Self-Management (General Plan of Care) On track(2023 9:55 AM CDT) Jaleesa Dior RN Note: Evidence-based guidance: Review biopsychosocial determinants [...] family history and health history. Notes: Therapeutic Quincy Established Care Plan Therapeutic [place]cy (General Plan of Care) On track(2023 9:55 AM CDT) Jaleesa Dior RN Note: Evidence-based guidance: Avoid value judgments; convey acceptance. Encourage collaboration with the treatment team. Establish rapport; develop trust relationship. [place] confidentiality. Provide emotional support; encourage patient to share feelings of anger, fear and anxiety. Promote self-reliance and autonomy based on age and ability; discourage overprotection. Use empathy and nonjudgmental, participatory manner. Notes: Activity and Exercise Increased Care Plan Activity and Exercise (Wellness) On track(2023 9:56 AM CDT) No Jaleesa Donis RN Note: Evidence-based guidance: Review current exercise [...] family in education concerning fall-prevention measures. Notes: Interventions Care Plan Interventions Intervention Entry Date Outcome Identify and Reduce Risk to Safety 10/24/2023 Note:Care Management Activities: t- depression screen reviewed - quality of sleep assessed Notes: Alleviate Barriers to Osteoporosis Treatment 10/24/2023 Note:Care Management Activities: t- activity and exercise based on ability and tolerance encouraged - healthy lifestyle promoted - incremental increase in activity promoted - support and encouragement provided Notes: Alleviate Barriers to Healthy Eating 10/24/2023 Note:Care Management Activities: t- incremental change encouraged - making healthy food choices encouraged Notes: Alleviate Barriers to Increasing Activity Level 10/24/2023 Note:Care Management Activities: t- exercise goal set - incremental change encouraged - reduction in sedentary behavior encouraged - support and encouragement provided Notes: Develop Relationship to Effect Behavior Change 10/24/2023 Note:Care Management Activities: t- care explained - choices provided - collaboration with team encouraged - questions answered - questions encouraged - rapport fostered Notes: Mutually Develop and Foster Achievement of Patient Goals 10/24/2023 Note:Care Management Activities: t- choices provided - collaboration with team encouraged - questions answered - readiness for change evaluated - verbalization of feelings encouraged Notes: Support and Maintain Acceptable Degree of Health, Comfort and Happiness 10/24/2023 Note:Care Management Activities: t- independence in all possible areas promoted - patient strengths promoted - social relationships promoted - wellness behaviors promoted Notes: Support Psychosocial Response to Risk or Actual Health Condition 10/24/2023 Note:Care Management Activities: t- active listening utilized - healthy lifestyle promoted - verbalization of feelings encouraged Notes: Related Goals and Interventions Goal Associated Intervent ions Coping Skills Enhanced Support Psychosoc ial Response to Risk or Actual Health Condition Quality of Life Maintained Support and M aintain Acceptable Degree of Health, Comfort and Happiness Self-Management Plan Developed Mutually Develop and Foster Achievement of Patient Goals Therapeutic [place] Established Develop Relationship to Effect Behavior Change Activity and Exercise Increased Alleviat e Barriers to Increasing Activity Level Healthy Nutrition Achieved Alleviate Bar riers to Healthy Eating Disease Progression Prevented or Minimiz ed Alleviate Barriers to Osteoporosis Treatment Harm or Injury Prevented Identify and Re duce Risk to Safety
[2025-01-06 15:45] VITALS: BP 168/77; PULSE 71; RESP 20; TEMP 36.4; O2SAT 99
== END 2025-01-06 16:30 | disposition home or self-care (01) ==
PROVIDERS: Emergency Provider Nurse Practitioner; PCP Internal Medicine
DX: L13.1 Subcorneal pustular dermatitis (principal); M81.0 Age-related osteoporosis without current pathological fracture
CPT/HCPCS: 99213; G0463